=== PATIENT | female | born 1995 | race Caucasian/White ===

== ENCOUNTER 2016-12-21 00:06 | Observation (INO) ==
[2016-12-21 00:31] LABS: Bilirubin,Urine Small (Negative); Blood,Urine Trace (Negative); Clarity,Urine Cloudy (Clear); Color,Urine Yellow (Yellow); Glucose,Urine (UA) >=1000 mg/dL (Normal); Ketones,Urine 80 mg/dL (Negative); Leukocyte Esterase,Urine Small (Negative); Nitrite,Urine Negative (Negative); Protein,Urine 30 mg/dL (Neg-Trace); Specific Gravity,Urine > 1.030 (1.010-1.025); Urobilinogen,Urine Normal (Normal)
[2016-12-21 00:33] LABS: Bacteria,Urine Few per hpf (None-Few); Hyaline Casts,Urine None Seen per lpf (None-Few); Squamous Epithelial Cell,Urine Many per lpf (None-Few); WBC,Urine 50-100 per hpf (0-3)
[2016-12-21] MEDS ORDERED: Ondansetron 4 MG/2 ML VIAL IVP ONE (01:03)
[2016-12-21 01:25] LABS: Basophils % 0.4 %; Eosinophils # 0.1 K/mcL (0.0-0.6); Eosinophils % 1.2 %; Hematocrit 41.1 % (35.3-44.9); Hemoglobin 13.9 g/dL (11.5-15.4); Immature Granulocytes % 0.4 % (0-4); Immature Platelets 0.9 % (1.1-6.1); Lymphocytes # 1.8 K/mcL (0.6-4.6); Lymphocytes % 18.1 %; Mean Corpuscular HGB Conc 33.8 g/dL (31.6-35.5); Mean Corpuscular Hemoglobin 29.8 pg (28.0-33.3); Mean Platelet Volume 8.5 fL (9.4-12.4); Monocytes # 0.8 K/mcL (0.0-1.3); Monocytes % 7.5 %; Neutrophils # 7.2 K/mcL (1.6-8.9); Platelet Count 360 K/mcL (140-400); Red Blood Count 4.67 M/mcL (3.82-4.97); Red Cell Distribution Width 12.4 % (11.5-14.5); Segmented Neutrophils % 72.4 %
[2016-12-21 01:32] LABS: Amphetamine Screen,Urine Negative ng/mL (Cutoff=1000); Barbiturate Screen,Urine Negative ng/mL (Cutoff=200); Benzodiazepines Screen,Urine Negative ng/mL (Cutoff=200); Cannabinoid Screen,Urine Negative ng/mL (Cutoff = 50); Cocaine Screen,Urine Negative ng/mL (Cutoff= 300); Opiate Screen,Urine Negative ng/mL (Cutoff=300); Phencyclidine Screen,Urine Negative ng/mL (Cutoff=25)
[2016-12-21 01:33] LABS: VBG HCO3 26.5 mEq/L (21-27); VBG PH 7.43 pH Units (7.32-7.42)
[2016-12-21 01:37] LABS: Beta-Hydroxybutyric Acid 1.57 mmol/L (0.02-0.27)
[2016-12-21 01:39] LABS: Alanine Aminotransferase 11 Units/L (0-55); Albumin 3.8 g/dL (3.5-5.0); Albumin/Globulin Ratio 1.1 (1.1-2.2); Alkaline Phosphatase 172 Units/L (38-126); Aspartate Amino Transferase 14 Units/L (5-34); BUN/Creatinine Ratio 9 (6-26); Bilirubin,Total 1.4 mg/dL (0.2-1.2); Blood Urea Nitrogen 7 mg/dL (7-20); Calcium 9.8 mg/dL (8.6-10.8); Carbon Dioxide 24 mEq/L (19-29); Chloride 103 mEq/L (98-109); Globulin 3.5 g/dL (2.4-3.5); Glucose 224 mg/dL (70-99); Magnesium 2.1 mg/dL (1.6-2.6); Osmolality,Calculated 289 (280-300); Phosphorous 1.7 mg/dL (2.3-4.7); Potassium 3.7 mEq/L (3.5-4.5); Sodium 137 mEq/L (136-145); Total Protein 7.3 g/dL (6.0-8.3); eGFR For African Americans > 60 (> 60); eGFR For Non-African Americans > 60 (> 60)
[2016-12-21] MEDS: 0.9 % Sodium Chloride 1,000 ML IVC SCH ×5 (01:42→23:36)
--- NOTE | 2016-12-21 02:39 | Emergency Department Note ---
Disposition Clinical Impression: Diabetic ketosis UTI (urinary tract infection) Qualifiers: Urinary tract infection type: site unspecified Hematuria presence: with hematuria Qualified Code(s): N39.0 - Urinary tract infection, site not specified ; R31.9 - Hematuria, unspecified Disposition: Admitted As Inpatient Condition: Fair Referrals: NO,PCP [Primary Care Provider] - Forms: ED Satisfaction Letter General Adult HPI - General Chief complaint: ED Nausea/Vomiting/Diarrhea Stated complaint: "think I'm in DKA" Time Seen by Provider: 12/21/16 00:59 Source: patient Mode of arrival: private vehicle Limitations: no limitations Nursing Notes Reviewed: Yes Vital Signs Reviewed: Yes - History of Present Illness Pt Subjective Complaint: "can't keep anything down and can't control my sugar" Onset (ago): day(s) Location: other ("no pain, just sore from vomiting so much") Pain Scale: 10 Improves with: nothing Worsens with: other (vomiting) Associated symptoms: Reports: malaise, nausea/vomiting, weakness. Denies: confusion, chest pain, cough, diaphoresis, fever/chills, headaches, loss of appetite, rash, seizure, shortness of breath, syncope Treatments Prior to Arrival: other (insulin) - Related Data Home Medications Medication Instructions Recorded Confirmed Atorvastatin Calcium [Lipitor] 20 mg PO DAILY 11/25/16 11/25/16 FLUoxetine HCl [PROzac] 20 mg PO DAILY 11/25/16 11/25/16 Gabapentin [Neurontin] 800 mg PO TID 11/25/16 11/25/16 Insulin ASPART [Novolog Flexpen] 40 unit SQ HS 11/25/16 11/25/16 Insulin Glargine,Hum.rec.anlog 1 unit SQ ACHS MDD sliding scale 11/25/16 [Lantus Solostar] Levothyroxine Sodium 75 mcg PO DAILY 11/25/16 11/25/16 Lisinopril [Zestril] 5 mg PO DAILY 11/25/16 11/25/16 Pen Needle, Diabetic [Bd 1 each ACHS 11/25/16 11/25/16 Ultra-Fine Pen Needle] SUMAtriptan Succinate [Imitrex] 100 mg PO PRN PRN 11/25/16 11/25/16 Topiramate [Topamax] 25 mg PO HS 11/25/16 11/25/16 Previous Rx's Medication Instructions Recorded Fluconazole [Diflucan] 150 mg PO Q72H #2 tab 11/25/16 Nystatin OINT [Mycostatin] 1 appl TP BID #30 g 11/25/16 Allergies Allergy/AdvReac Type Severity Reaction Status Date / Time No Known Allergies Allergy Verified 10/06/15 17:29 All systems ED: reviewed and negative except as stated. Constitutional: Reports: chills, weakness. Denies: fever, weight change, night sweats Eyes: Denies: vision change ENT ED: Denies: ear pain, throat pain, congestion, dysphagia Cardiovascular: Denies: chest pain, palpitations Respiratory: Denies: cough, dyspnea Gastrointestinal: Reports: nausea, vomiting, constipation ("all the time, not new"). Denies: diarrhea Genitourinary: Reports: dysuria (sometimes). Denies: urgency, frequency, hematuria, discharge Musculoskeletal: Denies: back pain, neck pain, joint swelling, arthralgia Integumentary: Denies: rash Neurological: Denies: headache, weakness, numbness, paresthesias, confusion, vertigo Endocrine: Reports: fatigue, polydipsia, polyuria Hematological/Lymphatic: Denies: easy bleeding, easy bruising Past Medical History - Past Medical History Attestation: Yes The following information was validated with the patient. Source: patient Medical history: Reports: diabetes, hyperlipidemia, kidney stones, migraine, thyroid disease Surgical history: Reports: (2013), cholecystectomy (2010), other (T&A ; Rectal polyp removed age 3) Psychiatric history: Reports: anxiety, depression [employer] history: Reports: non-contributory - Social History Smoking Status: Never smoker Smokeless Tobacco Status: No Alcohol use: Reports: rarely Drug use: Reports: none Physical Exam - General Limitations: no limitations General appearance: alert, in no apparent distress - Head Head exam: atraumatic, normocephalic, normal inspection - Eye Eye exam: Present: normal appearance, PERRL, EOMI. Absent: scleral icterus, conjunctival injection, periorbital swelling - ENT ENT exam: mucous membranes dry - Neck Neck exam: Present: normal inspection, full ROM, trachea midline. Absent: meningismus - Chest Chest inspection: Present: normal inspection - Respiratory Respiratory exam: Present: normal lung sounds bilaterally. Absent: respiratory distress - Cardiovascular Cardiovascular exam: Present: normal rhythm, tachycardia, normal heart sounds - Abdominal Exam Abdominal exam: Present: soft, Non-Tender. Absent: distention, guarding, rebound, rigidity, organomegaly, mass - Extremities Exam Extremities exam: Present: normal inspection. Absent: pedal edema - Back Exam Back exam: Present: normal inspection - Neurological Exam Neurological exam: Present: alert, oriented X3, CN II-XII intact - Psychiatric Psychiatric exam: Present: normal affect, normal mood - Skin Skin exam: Present: warm, dry, intact, normal color Course Vital Signs Temperature 97.8 F 12/21/16 00:07 Pulse Rate 100 12/21/16 00:07 Respiratory Rate 16 12/21/16 00:07 Blood Pressure 116/82 12/21/16 00:07 O2 Sat by Pulse Oximetry 99 12/21/16 00:07 Temperature 97.8 F 12/21/16 00:07 Pulse Rate 100 12/21/16 00:07 Respiratory Rate 16 12/21/16 00:07 Blood Pressure 116/82 12/21/16 00:07 O2 Sat by Pulse Oximetry 99 12/21/16 00:07 Oxygen Delivery Oxygen Delivery Room Air Medical Decision Making - Medical Records Medical records reviewed: Yes I reviewed the patient's medical records. - Lab Data Lab results reviewed: Yes I reviewed the patient's lab results. Lab results narrative: Laboratory Last Values WBC 10.0 K/mcL (4.3-11.1) 12/21/16 01:16 RBC 4.67 M/mcL (3.82-4.97) 12/21/16 01:16 Hgb 13.9 g/dL (11.5-15.4) 12/21/16 01:16 Hct 41.1 % (35.3-44.9) 12/21/16 01:16 MCV 88.0 fL (83.0-100.0) 12/21/16 01:16 MCH 29.8 pg (28.0-33.3) 12/21/16 01:16 MCHC 33.8 g/dL (31.6-35.5) 12/21/16 01:16 RDW 12.4 % (11.5-14.5) 12/21/16 01:16 Plt Count 360 K/mcL (140-400) 12/21/16 01:16 MPV 8.5 fL (9.4-12.4) L 12/21/16 01:16 Immature Gran % 0.4 % (0-4) 12/21/16 01:16 Seg Neutrophils % 72.4 % 12/21/16 01:16 Lymphocytes % 18.1 % 12/21/16 01:16 Monocytes % 7.5 % 12/21/16 01:16 Eosinophils % 1.2 % 12/21/16 01:16 Basophils % 0.4 % 12/21/16 01:16 Neutrophils # 7.2 K/mcL (1.6-8.9) 12/21/16 01:16 Lymphocytes # 1.8 K/mcL (0.6-4.6) 12/21/16 01:16 Monocytes # 0.8 K/mcL (0.0-1.3) 12/21/16 01:16 Eosinophils # 0.1 K/mcL (0.0-0.6) 12/21/16 01:16 Basophils # 0.0 K/mcL (0.0-0.2) 12/21/16 01:16 Immature Plt Fraction 0.9 % (1.1-6.1) L 12/21/16 01:16 VBG pH 7.43 pH Units (7.32-7.42) H 12/21/16 01:16 VBG pCO2 40 mmHg (41-51) L 12/21/16 01:16 VBG pO2 68 mmHg (25-40) H 12/21/16 01:16 VBG HCO3 26.5 mEq/L (21-27) 12/21/16 01:16 Sodium 137 mEq/L (136-145) 12/21/16 01:16 Potassium 3.7 mEq/L (3.5-4.5) 12/21/16 01:16 Chloride 103 mEq/L (98-109) 12/21/16 01:16 Carbon Dioxide 24 mEq/L (19-29) 12/21/16 01:16 BUN 7 mg/dL (7-20) 12/21/16 01:16 Creatinine 0.82 mg/dL (0.57-1.11) 12/21/16 01:16 Est GFR ( Amer) > 60 (> 60) 12/21/16 01:16 Est GFR (Non-Af Amer) > 60 (> 60) 12/21/16 01:16 BUN/Creatinine Ratio 9 (6-26) 12/21/16 01:16 Glucose 224 mg/dL (70-99) H 12/21/16 01:16 POC Glucose 266 (58-89) H 12/21/16 00:25 Calculated Osmolality 289 (280-300) 12/21/16 01:16 Calcium 9.8 mg/dL (8.6-10.8) 12/21/16 01:16 Phosphorus 1.7 mg/dL (2.3-4.7) L 12/21/16 01:16 Magnesium 2.1 mg/dL (1.6-2.6) 12/21/16 01:16 Total Bilirubin 1.4 mg/dL (0.2-1.2) H 12/21/16 01:16 AST 14 Units/L (5-34) 12/21/16 01:16 ALT 11 Units/L (0-55) 12/21/16 01:16 Alkaline Phosphatase 172 Units/L (38-126) H 12/21/16 01:16 Serum Total Protein 7.3 g/dL (6.0-8.3) 12/21/16 01:16 Albumin 3.8 g/dL (3.5-5.0) 12/21/16 01:16 Globulin 3.5 g/dL (2.4-3.5) 12/21/16 01:16 Albumin/Globulin Ratio 1.1 (1.1-2.2) 12/21/16 01:16 Beta-Hydroxybutyric Acd 1.57 mmol/L (0.02-0.27) H 12/21/16 01:16 Urine Color Yellow (Yellow) 12/21/16 00:19 Urine Clarity Cloudy (Clear) A 12/21/16 00:19 Urine pH 6.0 pH Units (5.0-8.0) 12/21/16 00:19 Ur Specific [place] > 1.030 (1.010-1.025) H 12/21/16 00:19 Urine Protein 30 mg/dL (Neg-Trace) H 12/21/16 00:19 Urine Glucose (UA) >=1000 mg/dL (Normal) H 12/21/16 00:19 Urine Ketones 80 mg/dL (Negative) H 12/21/16 00:19 Urine Blood Trace (Negative) H 12/21/16 00:19 Urine Nitrite Negative (Negative) 12/21/16 00:19 Urine Bilirubin Small (Negative) H 12/21/16 00:19 Urine Urobilinogen Normal mg/dL (Normal) 12/21/16 00:19 Ur Leukocyte Esterase Small (Negative) H 12/21/16 00:19 Urine Microscopic RBC 3-5 per hpf (0-3) H 12/21/16 00:19 Urine Microscopic WBC 50-100 per hpf (0-3) H 12/21/16 00:19 Ur Squamous Epith Cells Many per lpf (None-Few) H 12/21/16 00:19 Urine Bacteria Few per hpf (None-Few) 12/21/16 00:19 Hyaline Casts None Seen per lpf (None-Few) 12/21/16 00:19 Urine Test Negative (Negative) 12/21/16 00:19 Urine Opiates Screen Negative ng/mL (Lowvrw=370) 12/21/16 Unknown Ur Barbiturates Screen Negative ng/mL (Fpvrwf=759) 12/21/16 Unknown Ur Phencyclidine Scrn Negative ng/mL (Cutoff=25) 12/21/16 Unknown Ur Amphetamines Screen Negative ng/mL (Icfuom=0368) 12/21/16 Unknown U Benzodiazepines Scrn Negative ng/mL (Jwmgmc=161) 12/21/16 Unknown Urine Cocaine Screen Negative ng/mL (Cutoff= 300) 12/21/16 Unknown U Marijuana (THC) Screen Negative ng/mL (Cutoff = 50) 12/21/16 Unknown Result diagrams: 12/21/16 01:16 12/21/16 01:16 Lab Results 12/21/16 12/21/16 12/21/16 Range/Units 00:19 00:19 00:25 WBC (4.3-11.1) K/mcL RBC (3.82-4.97) M/mcL Hgb (11.5-15.4) g/dL Hct (35.3-44.9) % MCV (83.0-100.0) fL MCH (28.0-33.3) pg MCHC (31.6-35.5) g/dL RDW (11.5-14.5) % Plt Count (140-400) K/mcL MPV (9.4-12.4) fL Immature Gran % (0-4) % Seg Neutrophils % % Lymphocytes % % Monocytes % % Eosinophils % % Basophils % % Neutrophils # (1.6-8.9) K/mcL Lymphocytes # (0.6-4.6) K/mcL Monocytes # (0.0-1.3) K/mcL Eosinophils # (0.0-0.6) K/mcL Basophils # (0.0-0.2) K/mcL Immature Plt Fraction (1.1-6.1) % VBG pH (7.32-7.42) pH Units VBG pCO2 (41-51) mmHg VBG pO2 (25-40) mmHg VBG HCO3 (21-27) mEq/L Sodium (136-145) mEq/L Potassium (3.5-4.5) mEq/L Chloride (98-109) mEq/L Carbon Dioxide (19-29) mEq/L BUN (7-20) mg/dL Creatinine (0.57-1.11) mg/dL Est GFR ( Amer) (> 60) Est GFR (Non-Af Amer) (> 60) BUN/Creatinine Ratio (6-26) Glucose (70-99) mg/dL POC Glucose 266 H (58-89) Calculated Osmolality (280-300) Calcium (8.6-10.8) mg/dL Phosphorus (2.3-4.7) mg/dL Magnesium (1.6-2.6) mg/dL Total Bilirubin (0.2-1.2) mg/dL AST (5-34) Units/L ALT (0-55) Units/L Alkaline Phosphatase (38-126) Units/L Serum Total Protein (6.0-8.3) g/dL Albumin (3.5-5.0) g/dL Globulin (2.4-3.5) g/dL Albumin/Globulin Ratio (1.1-2.2) Beta-Hydroxybutyric Acd (0.02-0.27) mmol/L Urine Color Yellow (Yellow) Urine Clarity Cloudy A (Clear) Urine pH 6.0 (5.0-8.0) pH Units Ur Specific [place] > 1.030 H (1.010-1.025) Urine Protein 30 H (Neg-Trace) mg/dL Urine Glucose (UA) >=1000 H (Normal) mg/dL Urine Ketones 80 H (Negative) mg/dL Urine Blood Trace H (Negative) Urine Nitrite Negative (Negative) Urine Bilirubin Small H (Negative) Urine Urobilinogen Normal (Normal) mg/dL Ur Leukocyte Esterase Small H (Negative) Urine Microscopic RBC 3-5 H (0-3) per hpf Urine Microscopic WBC 50-100 H (0-3) per hpf Ur Squamous Epith Cells Many H (None-Few) per lpf Urine Bacteria Few (None-Few) per hpf Hyaline Casts None Seen (None-Few) per lpf Urine Test Negative (Negative) Urine Opiates Screen (Jpfpzr=549) ng/mL Ur Barbiturates Screen (Cvedvd=326) ng/mL Ur Phencyclidine Scrn (Cutoff=25) ng/mL Ur Amphetamines Screen (Tdnyex=1022) ng/mL U Benzodiazepines Scrn (Wefctl=242) ng/mL Urine Cocaine Screen (Cutoff= 300) ng/mL U Marijuana (THC) Screen (Cutoff = 50) ng/mL 12/21/16 12/21/16 12/21/16 Range/Units 01:16 01:16 01:16 WBC 10.0 (4.3-11.1) K/mcL RBC 4.67 (3.82-4.97) M/mcL Hgb 13.9 (11.5-15.4) g/dL Hct 41.1 (35.3-44.9) % MCV 88.0 (83.0-100.0) fL MCH 29.8 (28.0-33.3) pg MCHC 33.8 (31.6-35.5) g/dL RDW 12.4 (11.5-14.5) % Plt Count 360 (140-400) K/mcL MPV 8.5 L (9.4-12.4) fL Immature Gran % 0.4 (0-4) % Seg Neutrophils % 72.4 % Lymphocytes % 18.1 % Monocytes % 7.5 % Eosinophils % 1.2 % Basophils % 0.4 % Neutrophils # 7.2 (1.6-8.9) K/mcL Lymphocytes # 1.8 (0.6-4.6) K/mcL Monocytes # 0.8 (0.0-1.3) K/mcL Eosinophils # 0.1 (0.0-0.6) K/mcL Basophils # 0.0 (0.0-0.2) K/mcL Immature Plt Fraction 0.9 L (1.1-6.1) % VBG pH 7.43 H (7.32-7.42) pH Units VBG pCO2 40 L (41-51) mmHg VBG pO2 68 H (25-40) mmHg VBG HCO3 26.5 (21-27) mEq/L Sodium 137 (136-145) mEq/L Potassium 3.7 (3.5-4.5) mEq/L Chloride 103 (98-109) mEq/L Carbon Dioxide 24 (19-29) mEq/L BUN 7 (7-20) mg/dL Creatinine 0.82 (0.57-1.11) mg/dL Est GFR ( Amer) > 60 (> 60) Est GFR (Non-Af Amer) > 60 (> 60) BUN/Creatinine Ratio 9 (6-26) Glucose 224 H (70-99) mg/dL POC Glucose (58-89) Calculated Osmolality 289 (280-300) Calcium 9.8 (8.6-10.8) mg/dL Phosphorus 1.7 L (2.3-4.7) mg/dL Magnesium 2.1 (1.6-2.6) mg/dL Total Bilirubin 1.4 H (0.2-1.2) mg/dL AST 14 (5-34) Units/L ALT 11 (0-55) Units/L Alkaline Phosphatase 172 H (38-126) Units/L Serum Total Protein 7.3 (6.0-8.3) g/dL Albumin 3.8 (3.5-5.0) g/dL Globulin 3.5 (2.4-3.5) g/dL Albumin/Globulin Ratio 1.1 (1.1-2.2) Beta-Hydroxybutyric Acd 1.57 H (0.02-0.27) mmol/L Urine Color (Yellow) Urine Clarity (Clear) Urine pH (5.0-8.0) pH Units Ur Specific [place] (1.010-1.025) Urine Protein (Neg-Trace) mg/dL Urine Glucose (UA) (Normal) mg/dL Urine Ketones (Negative) mg/dL Urine Blood (Negative) Urine Nitrite (Negative) Urine Bilirubin (Negative) Urine Urobilinogen (Normal) mg/dL Ur Leukocyte Esterase (Negative) Urine Microscopic RBC (0-3) per hpf Urine Microscopic WBC (0-3) per hpf Ur Squamous Epith Cells (None-Few) per lpf Urine Bacteria (None-Few) per hpf Hyaline Casts (None-Few) per lpf Urine Test (Negative) Urine Opiates Screen (Jbacqg=694) ng/mL Ur Barbiturates Screen (Lovgrt=958) ng/mL Ur Phencyclidine Scrn (Cutoff=25) ng/mL Ur Amphetamines Screen (Frpmfl=5381) ng/mL U Benzodiazepines Scrn (Gjsrou=734) ng/mL Urine Cocaine Screen (Cutoff= 300) ng/mL U Marijuana (THC) Screen (Cutoff = 50) ng/mL 12/21/16 Range/Units Unknown WBC (4.3-11.1) K/mcL RBC (3.82-4.97) M/mcL Hgb (11.5-15.4) g/dL Hct (35.3-44.9) % MCV (83.0-100.0) fL MCH (28.0-33.3) pg MCHC (31.6-35.5) g/dL RDW (11.5-14.5) % Plt Count (140-400) K/mcL MPV (9.4-12.4) fL Immature Gran % (0-4) % Seg Neutrophils % % Lymphocytes % % Monocytes % % Eosinophils % % Basophils % % Neutrophils # (1.6-8.9) K/mcL Lymphocytes # (0.6-4.6) K/mcL Monocytes # (0.0-1.3) K/mcL Eosinophils # (0.0-0.6) K/mcL Basophils # (0.0-0.2) K/mcL Immature Plt Fraction (1.1-6.1) % VBG pH (7.32-7.42) pH Units VBG pCO2 (41-51) mmHg VBG pO2 (25-40) mmHg VBG HCO3 (21-27) mEq/L Sodium (136-145) mEq/L Potassium (3.5-4.5) mEq/L Chloride (98-109) mEq/L Carbon Dioxide (19-29) mEq/L BUN (7-20) mg/dL Creatinine (0.57-1.11) mg/dL Est GFR ( Amer) (> 60) Est GFR (Non-Af Amer) (> 60) BUN/Creatinine Ratio (6-26) Glucose (70-99) mg/dL POC Glucose (58-89) Calculated Osmolality (280-300) Calcium (8.6-10.8) mg/dL Phosphorus (2.3-4.7) mg/dL Magnesium (1.6-2.6) mg/dL Total Bilirubin (0.2-1.2) mg/dL AST (5-34) Units/L ALT (0-55) Units/L Alkaline Phosphatase (38-126) Units/L Serum Total Protein (6.0-8.3) g/dL Albumin (3.5-5.0) g/dL Globulin (2.4-3.5) g/dL Albumin/Globulin Ratio (1.1-2.2) Beta-Hydroxybutyric Acd (0.02-0.27) mmol/L Urine Color (Yellow) Urine Clarity (Clear) Urine pH (5.0-8.0) pH Units Ur Specific [place] (1.010-1.025) Urine Protein (Neg-Trace) mg/dL Urine Glucose (UA) (Normal) mg/dL Urine Ketones (Negative) mg/dL Urine Blood (Negative) Urine Nitrite (Negative) Urine Bilirubin (Negative) Urine Urobilinogen (Normal) mg/dL Ur Leukocyte Esterase (Negative) Urine Microscopic RBC (0-3) per hpf Urine Microscopic WBC (0-3) per hpf Ur Squamous Epith Cells (None-Few) per lpf Urine Bacteria (None-Few) per hpf Hyaline Casts (None-Few) per lpf Urine Test (Negative) Urine Opiates Screen Negative (Xddhgu=838) ng/mL Ur Barbiturates Screen Negative (Commzl=940) ng/mL Ur Phencyclidine Scrn Negative (Cutoff=25) ng/mL Ur Amphetamines Screen Negative (Abjfpw=4814) ng/mL U Benzodiazepines Scrn Negative (Zyxbgd=962) ng/mL Urine Cocaine Screen Negative (Cutoff= 300) ng/mL U Marijuana (THC) Screen Negative (Cutoff = 50) ng/mL
[2016-12-21] MEDS ORDERED: 0.9 % Sodium Chloride 1,000 ML IVC ONE (03:47)
[2016-12-21] MEDS ORDERED: Insulin Human Regular 100 UNIT in 0.9 % Sodium Chloride 100 ML IVC SCH (04:00)
--- NOTE | 2016-12-21 04:04 | Internal Med History&Physical ---
Date of Encounter: 12/21/16 Time of Encounter: 04:02 Assessment and Plan (1) Hyperglycemia Current visit: Yes Status: Acute Hyperglycemic hyper smaller states. No DKA. Will hydrate. because she still have ketones in blood and is unable to keep any food down will keep on insulin drip for now. We will check BMP, venous blood gas, ketones Q4 hours times 2. One she is able to tolerate PO diet and resolution of ketosis will start the patient on long-acting and premeal insulin. (2) UTI (urinary tract infection) Current visit: Yes Status: Acute We will start patient on ceftriaxone. Because of blowing tenderness and prior history of kidney stones CT scan of the abdomen and pelvis will be performed. Check urine culture Qualifiers: Urinary tract infection type: site unspecified Hematuria presence: with hematuria Qualified Code(s): N39.0 - Urinary tract infection, site not specified; R31.9 - Hematuria, unspecified Internal Medicine - H&P: HPI Chief complaint: vomiting abdominal pain History of present illness: Ms. Munoz is a 21 year old female with type I diabetes mellitus since the age of 1 years on Lantus 15 minutes daily NovoLog 15 units TID in addition to sliding scale presents the emergency room today with the main complain of vomiting and abdominal pain. For the past day patient has been unable to keep any food down having nausea nonbloody vomiting and chills. She has been having abdominal pain. She has been experiencing some back pain also. She has prior history of kidney stones and stenting. Patient was concerned because she was unable to keep any food down. In the emergency room she was found to have a urinary tract infection and hyperglycemic hyperosmolar state. Patient has been checking her blood sugars at home as well as ketone bodies and they were hi Past Med Surg Social Fam HX - Past Medical History Medical history: diabetes, hyperlipidemia, kidney stones, migraine, thyroid disease Psychiatric history: anxiety, depression - Past Surgical History Surgical History: , cholecystectomy, other - Social History Smoking Status: Never smoker Smokeless Tobacco Status: No Alcohol use: rarely Drug use: none - Family History Father Hx Family Endocrine Disorder: Yes (Diabetes) Mother Hx Family Cancer: Yes Internal Medicine - H&P: Meds Atorvastatin Calcium [Lipitor] 20 mg PO DAILY 11/25/16 [History] FLUoxetine HCl [PROzac] 20 mg PO DAILY 11/25/16 [History] Fluconazole [Diflucan] 150 mg PO Q72H #2 tab 11/25/16 [Rx] Gabapentin [Neurontin] 800 mg PO TID 11/25/16 [History] Insulin ASPART [Novolog Flexpen] 40 unit SQ HS 11/25/16 [History] Insulin Glargine,Hum.rec.anlog [Lantus Solostar] 1 unit SQ ACHS MDD sliding scale 11/25/16 [History] Levothyroxine Sodium 75 mcg PO DAILY 11/25/16 [History] Lisinopril [Zestril] 5 mg PO DAILY 11/25/16 [History] Nystatin OINT [Mycostatin] 1 appl TP BID #30 g 11/25/16 [Rx] Pen Needle, Diabetic [Bd Ultra-Fine Pen Needle] 1 each MC ACHS 11/25/16 [History ] SUMAtriptan Succinate [Imitrex] 100 mg PO PRN PRN 11/25/16 [History] Topiramate [Topamax] 25 mg PO HS 11/25/16 [History] Allergies No Known Allergies Allergy (Verified 10/06/15 17:29) All Systems PM: A 10-system review of systems was performed and is negative for pertinent findings except as documented above in the HPI. Review of systems: 10 point review of systems is negative except for HPI - Constitutional Vitals: Temp Pulse Resp BP Pulse Ox 98.6 F 84 16 105/67 100 12/21/16 03:44 12/21/16 03:44 12/21/16 03:44 12/21/16 03:44 12/21/16 03:44 Exam: Gen.: patient is alert oriented times 3 cardiac: normal S1 S2 no additional sounds or murmurs chest: no active wheezing or bronchial breathing abdomen CVA tenderness lower extremity no swelling. Neuro: no new focal deficits Internal Med - H&P Results - Labs CBC & Chem 7: 12/21/16 01:16 12/21/16 01:16
[2016-12-21 04:55] LABS: BUN/Creatinine Ratio 9 (6-26); Blood Urea Nitrogen 6 mg/dL (7-20); Carbon Dioxide 22 mEq/L (19-29); Chloride 109 mEq/L (98-109); Glucose 146 mg/dL (70-99); Osmolality,Calculated 288 (280-300); Potassium 3.4 mEq/L (3.5-4.5); Sodium 139 mEq/L (136-145); eGFR For African Americans > 60 (> 60); eGFR For Non-African Americans > 60 (> 60)
[2016-12-21] MEDS: *HR* Heparin 5,000 UNIT/ML VIAL SQ SCH ×2 (04:56→16:28)
[2016-12-21] MEDS ORDERED: *HR* Dextrose 50 % in Water (Syg) 50 ML SYRINGE IVP PRN (05:05)
[2016-12-21] MEDS ORDERED: D5% in Water 1,000 ML IVC PRN (05:05)
[2016-12-21] MEDS ORDERED: Dextrose Gel 15 GM PO PRN ×2 (05:05)
[2016-12-21 05:27] LABS: Beta-Hydroxybutyric Acid > 2.00 mmol/L (0.02-0.27)
[2016-12-21 06:23] LABS: Hemoglobin A1C 10.1 %
[2016-12-21] MEDS ORDERED: Insulin LISPRO 300 UNITS/3 ML VIAL SQ SCH ×2 (08:00→21:00)
[2016-12-21] MEDS ORDERED: Pantoprazole 40 MG VIAL IVP SCH (09:00)
[2016-12-21 09:04] LABS: Beta-Hydroxybutyric Acid > 2.00 mmol/L (0.02-0.27)
[2016-12-21 09:12] LABS: BUN/Creatinine Ratio 7 (6-26); Calcium 7.8 mg/dL (8.6-10.8); Carbon Dioxide 19 mEq/L (19-29); Chloride 110 mEq/L (98-109); Glucose 315 mg/dL (70-99); Osmolality,Calculated 297 (280-300); Potassium 3.9 mEq/L (3.5-4.5); Sodium 139 mEq/L (136-145); eGFR For African Americans > 60 (> 60); eGFR For Non-African Americans > 60 (> 60)
[2016-12-21 09:19] LABS: Blood Urea Nitrogen 5 mg/dL (7-20)
--- NOTE | 2016-12-21 09:53 | Event Note ---
Date of Encounter: 12/21/16 Time of Encounter: 09:53 Seen and reviewed at bedside 21 F with Type I DM, Uncontrolled with A1C 19and complicated by neuropathy being managed for hyperglycemia without DKA and Pyelonephritis Has no new complains Physical exam unremarkable, no CVA tenderness, has suprapubic tenderness Reports having been treated for STIs 2 weeks ago Check Urine Salvador/Chlamydia Send urine culture-Not sent with admitting labs Continue ceftriaxone Replace Phos and K Restart home meds and insulin
[2016-12-21] MEDS ORDERED: SUMAtriptan succinate 50 MG TABLET PO PRN (09:59)
[2016-12-21] MEDS: Insulin LISPRO 300 UNITS/3 ML VIAL SQ SCH ×4 (10:57→16:27)
[2016-12-21] MEDS: Gabapentin 400 MG CAPSULE PO SCH ×2 (13:56→21:13)
[2016-12-21] MEDS ORDERED: Gabapentin 400 MG CAPSULE PO SCH ×2 (15:00→21:00)
[2016-12-21] MEDS ORDERED: Topiramate 25 MG TABLET PO SCH (21:00)
[2016-12-21] MEDS ORDERED: Insulin DETEMIR 100 UNIT/ML X5UNITS SQ SCH (21:00)
[2016-12-22 05:54] LABS: Basophils % 0.4 %; Eosinophils # 0.2 K/mcL (0.0-0.6); Eosinophils % 2.5 %; Hematocrit 36.1 % (35.3-44.9); Immature Granulocytes % 0.4 % (0-4); Lymphocytes % 24.9 %; Mean Corpuscular HGB Conc 33.2 g/dL (31.6-35.5); Mean Corpuscular Hemoglobin 30.4 pg (28.0-33.3); Mean Corpuscular Volume 91.4 fL (83.0-100.0); Mean Platelet Volume 8.9 fL (9.4-12.4); Monocytes # 0.6 K/mcL (0.0-1.3); Monocytes % 7.2 %; Neutrophils # 5.2 K/mcL (1.6-8.9); Platelet Count 234 K/mcL (140-400); Red Blood Count 3.95 M/mcL (3.82-4.97); Red Cell Distribution Width 12.7 % (11.5-14.5); Segmented Neutrophils % 64.6 %
[2016-12-22] MEDS: 0.9 % Sodium Chloride 1,000 ML IVC SCH (06:03)
[2016-12-22] MEDS: *HR* Heparin 5,000 UNIT/ML VIAL SQ SCH (06:03)
[2016-12-22 06:09] LABS: BUN/Creatinine Ratio 6 (6-26); Blood Urea Nitrogen 4 mg/dL (7-20); Calcium 8.5 mg/dL (8.6-10.8); Carbon Dioxide 26 mEq/L (19-29); Chloride 109 mEq/L (98-109); Glucose 141 mg/dL (70-99); Osmolality,Calculated 289 (280-300); Potassium 3.4 mEq/L (3.5-4.5); Sodium 140 mEq/L (136-145); eGFR For African Americans > 60 (> 60); eGFR For Non-African Americans > 60 (> 60)
[2016-12-22] MEDS: Gabapentin 400 MG CAPSULE PO SCH (08:49)
[2016-12-22] MEDS: Insulin LISPRO 300 UNITS/3 ML VIAL SQ SCH ×4 (08:56→12:11)
[2016-12-22] MEDS ORDERED: FLUoxetine 20 MG CAPSULE PO SCH (09:00)
[2016-12-22] MEDS ORDERED: Sennosides 8.6 MG TABLET PO SCH (09:00)
[2016-12-22 11:19] VITALS: BP 108/74
--- NOTE | 2016-12-22 12:52 | Discharge Summary ---
Date of Encounter: 12/22/16 Time of Encounter: 12:50 - Discharge Diagnosis (1) Pyelonephritis Priority: Primary Status: Acute (2) Diabetes mellitus Priority: Primary Status: Chronic Qualifiers: Diabetes mellitus type: type 1 Diabetes mellitus complication status: with hyperglycemia Qualified Code(s): E10.65 - Type 1 diabetes mellitus with hyperglycemia (3) Hypothyroidism Priority: Secondary Status: Chronic Qualifiers: Hypothyroidism type: unspecified Qualified Code(s): E03.9 - Hypothyroidism , unspecified (4) Hyperglycemia Priority: Primary Status: Acute - Discharge Medications Prescriptions: Cefdinir [Omnicef] 300 mg PO BID #10 capsule Home Medications: Atorvastatin Calcium [Lipitor] 20 mg PO DAILY 11/25/16 [History] FLUoxetine HCl [Prozac] 20 mg PO DAILY 11/25/16 [History] Gabapentin [Neurontin] 800 mg PO TID 11/25/16 [History] Insulin ASPART [Novolog Flexpen] 12 unit SQ TIDWM MDD PLUS SLIDING SCALE [History] Insulin Glargine,Hum.rec.anlog [Lantus Solostar] 50 unit SQ HS 11/25/16 [History ] Levothyroxine Sodium 75 mcg PO DAILY 11/25/16 [History] Lisinopril [Zestril] 5 mg PO DAILY 11/25/16 [History] SUMAtriptan Succinate [Imitrex] 100 mg PO DAILY PRN 11/25/16 [History] Topiramate [Topamax] 25 mg PO HS 11/25/16 [History] Etonogestrel [Nexplanon] 68 mg SQ AD 12/21/16 [History] Propranolol [Inderal] 10 mg PO BID 12/21/16 [History] Sennosides [Senna] 17.2 mg PO DAILY 12/21/16 [History] Cefdinir [Omnicef] 300 mg PO BID #10 capsule 12/22/16 [Rx] Allergies/Adverse Reactions: Allergies No Known Allergies Allergy (Verified 10/06/15 17:29) Procedures/tests Complete & Pending: Procedures Performed prior 72 hours Category Date Time Status CT abd pelvis wo no iv no oral [CT] Routine Cat Scan 12/21/16 07:30 Draft Date of admission: 12/21/16 03:03 Primary care physician: PCP NO Consults: 12/21/16 05:05 Consult to Mobile Home Set Up Person [CONS] Routine Comment: Reason for Consult: blood sugar out of range, UTI Discharging clinician: Robbin Song Anticipated date of discharge: 12/22/16 - Patient Status Disposition: Home, Self-Care Condition: Good Functional capacity at discharge: independent ambulation Overall status at discharge: patient is back to baseline - Discharge Instructions Instructions: Urinary Tract Infection in Women (DC) Follow Up With: Gatito Mendez DO [Resident] - 01/04/17 9:15 am (Please filll out the new patient packet that you recieve in the mail and take to your first appointment, along with any rx bottles. If you need to cancal please give at least 24hr notice ) Additional Instructions: MAKE APPOINTMENT WITH PCP ENSURE COMPLETION OF 5 MORE DAYS OF ORAL ANTIBIOTICS - Diet and Activity Activity: resume usual activities as tolerated Diet: diabetic diet Interval History: See below Hospital course: Ms. Munoz is a 21 year old female with Uncontrolled Type I DM, presented to the ER with nausea, vomiting, abdominal discomfort, and hyperglycemia She did not have fever or any signs of sepsis Work up revealed ketonuria and ketonemia with hyperglycemia, however, PH was 7.4 , A1C was 9.1 Patient reports not having a PCP and questionable compliance with her medications Work up also revealed a dirty UA, as well as Abdomen and Pelvis CT showing bladder wall thickening, as well as renal pelvis and urothelial fat stranding, suggesting pyelonpehritis She was empirically started on antibiotics Urine culture (done after antibiotics have started ) showed not growth Urine Salvador/Chlamydia was negative, patient was treated for STI 2 weeks prior to presentation, Pelvis CT did not show free fluid, patient denied vaginal discharge She is seen at bedside this morning, in no apparent form of distress, she is clinicaly stable She is discharged home on Omnicef and encouraged to comply with medications PCP appointment made 3 mins spent on education about smoking cessation Continue other home meds Time spent discussing smoking cessation with patient: 3 to 10 minutes - Time Spent with Patient Total time spent providing and/or coordinating discharge services: Less than 30 minutes - Constitutional Vitals: Temp Pulse Resp BP Pulse Ox 97.7 F 79 16 108/74 100 12/22/16 11:16 12/22/16 11:16 12/22/16 11:16 12/22/16 11:16 12/22/16 11:16 General appearance: Present: A&O X 3, pleasant, no acute distress - Head Head exam: Present: atraumatic, normocephalic - Eye Eye exam: Present: PERRL, conjuntiva pink, sclera anicteric Pupils: Present: PERRL - Neck Neck exam general surgery: Present: supple, trachea midline. Absent: lymphadenopathy - Respiratory Respiratory exam: Present: CTAB. Absent: accessory muscle use, rales, rhonchi, wheezes - Cardiovascular Cardiovascular exam: Present: RRR, +S1, +S2. Absent: diastolic murmur, gallop, rubs, systolic murmur - GI/Abdominal GI/Abdominal exam: Present: normal bowel sounds, soft, no peritoneal signs. Absent: distended, tenderness - Extremities Exam Extremities exam: Present: warm, radial pulses palpable and symetrical. Absent : calf tenderness, cyanotic, pedal edema - Neurological Exam Neurological exam: Present: alert, CN II-XII intact, oriented X3, no focal deficits. Absent: pronater drift, facial droop, speech deficit - Skin Skin exam: Present: dry, intact
== END 2016-12-22 13:48 | disposition home or self-care (01) ==
LOC: 2ANU 00:06 → EMEROO 00:06 → 2ANU 03:40 → SUATTDRO 06:36
PROVIDERS: ADMIT Internal Medicine; ATTEND Internal Medicine

== ENCOUNTER 2019-04-23 12:06 | Observation (INO) ==
[2019-04-23 13:39] LABS: Bilirubin,Urine Negative (Negative); Blood,Urine Trace (Negative); Clarity,Urine Clear (Clear); Color,Urine Yellow (Yellow); Glucose,Urine (UA) Normal (Normal); Ketones,Urine Negative (Negative); Leukocyte Esterase,Urine Negative (Negative); Nitrite,Urine Negative (Negative); Protein,Urine 30 mg/dL (Neg-Trace); Specific Gravity,Urine < 1.005 (1.010-1.025); Urobilinogen,Urine Normal (Normal)
[2019-04-23 13:41] LABS: Bacteria,Urine None Seen per hpf (None-Few); Hyaline Casts,Urine None Seen per lpf (None-Few); RBC,Urine 0-3 per hpf (0-3); Squamous Epithelial Cell,Urine Moderate per lpf (None-Few); WBC,Urine 0-3 per hpf (0-3)
[2019-04-23 14:02] LABS: Amphetamine Screen,Urine Negative ng/mL (Cutoff=1000); Barbiturate Screen,Urine Negative ng/mL (Cutoff=200); Benzodiazepines Screen,Urine Negative ng/mL (Cutoff=200); Cannabinoid Screen,Urine Negative ng/mL (Cutoff = 50); Cocaine Screen,Urine Negative ng/mL (Cutoff= 300); Opiate Screen,Urine Negative ng/mL (Cutoff=300); Phencyclidine Screen,Urine Negative ng/mL (Cutoff=25)
== END 2019-04-23 15:15 | disposition home or self-care (01) ==
LOC: 1NENULAB
PROVIDERS: ADMIT Advanced Practice Midwife; ATTEND Advanced Practice Midwife